=== PATIENT | male | born 1975 | race Caucasian/White ===

== ENCOUNTER 2016-05-02 13:50 | Emergency (ER) | payer BC | END 2016-05-02 14:00 | disposition home or self-care (01) | LOC: ER 13:50 | PROC: 2W3DX1Z Immobilization of Left Lower Arm using Splint (ICD-10-PCS; principal; 2016-05-02) | DX: S66.912A Strain of unspecified muscle, fascia and tendon at wrist and hand level, left hand, initial encounter (principal); S39.011A Strain of muscle, fascia and tendon of abdomen, initial encounter; H10.9 Unspecified conjunctivitis; Y93.64 Activity, baseball; W19.XXXA Unspecified fall, initial encounter | CPT/HCPCS: 73110-LT; 99283 ==